=== PATIENT | female | born 1990 | race Caucasian/White ===

== ENCOUNTER 2022-05-01 07:48 | Emergency (ER) | payer OTHER ==
[~2022-05-01] VITALS: Ht 165.1 cm; Wt 59.9 kg
[~2022-05-01 07:48] MED LIST: ABILIFY5 MG; ADVIL200 M1 PO; DIFLUCAN150 MG PO; DOXYCYCLINE HY100 MG PO; FLEXERIL10 MG PO; IBUPROFEN200 M1 PO; LORTAB 5-325 M1 EACH PO; NAPROXEN500 MG PO; NORCO 5-325 TA1 EACH PO; PERCOCET 5-3251 EACH PO; ROBAXIN-750750 MG PO; ZOFRAN8 MG PO
--- OUTSIDE RECORDS SUMMARY | 2022-05-01 07:56 | XMS ---
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 Asuncion VISIT COUNT (12 MO.) 1 [place] De LeonAletha Ross [address] [place] [address] TOTAL 3 NOTE: Visits indicate total known visits. ED/UCC VISIT TRACKING (12 MO.) 05/01/2022 07:50 [facility] TYPE: Emergency COMPLAINT: - HEADACHE, EYE PAIN, NAUSEA, AMS 04/30/2022 17:14 [facility] [place] TYPE: Emergency COMPLAINT: - HEADACHE, SLURRED SPEECH 04/24/2022 09:47 [facility] Aletha AVILES TYPE: Emergency DIAGNOSES: - Procedure and treatment not carried out due to patient leaving prior to being seen by health care provider - pain INPATIENT VISIT TRACKING (12 MO.) No inpatient visits to display in this time frame [email or web address]
== END 2022-05-01 12:15 | disposition home or self-care (01) ==
LOC: ED 07:48
DX: R51.9 Headache, unspecified (principal); F17.200 Nicotine dependence, unspecified, uncomplicated; Z20.822 Contact with and (suspected) exposure to COVID-19
CPT/HCPCS: 36415; 70450; 70551; 80053; 84703; 85025; 87502; 96361; 96374; 96375; 99284-25; C9803; J1200; J1885; J2765; J7030; U0003

== ENCOUNTER 2025-02-17 09:32 | Emergency (ER) | payer OTHER ==
[~2025-02-17] VITALS: Ht 165.1 cm; Wt 62.0 kg
--- OUTSIDE RECORDS SUMMARY | ~2025-02-17 | XMS | Continuity of Care Document ---
Demographics + + + | Address | [address] | | | [place] [address] | + + + | Preferred Language | Unknown | + + + | Marital Status | Unknown | + + + | Samaritan Affiliation | Unknown | + + + | Race | White | + + + | Ethnic Group | Not or | + + + Author + + + | Author | [facility] | + + + | Organization | [facility] | + + + | Address | [address] | | | [place] [address] | + + + | Phone | | + + + Care Team Providers + + + + | Care Data Communications Technician Name | Role | Phone | + + + + Unavailable | Unavailable | + + + + Allergies No information. Encounters No information. Functional Status No information. Immunizations No information. Medications No information. Problems + + + + | date | description | facility | + + + + | 2025-01-30 23:58:42 | Dental Pain | [facility] | + + + + | 2025-01-31 00:23:39 | Periapical abscess without | [facility] | | | sinus | | + + + + Procedures No information. Results/Labs No information. Social History +--------+ + + | date | description | facility | +--------+ + + Vital Signs No information."
--- OUTSIDE RECORDS SUMMARY | 2025-02-17 09:46 | XMS ---
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 No recent Security Events currently on file CRITERIA MET - [facility] - 2 Visits in 30 Days CARE PROVIDERS -, [facility] Dentist: Car Rental Service Attendant [facility] PHONE: [phone] -[facility] Dentist: Car Rental Service Attendant Current Eddie PHONE: [phone] [employer]/Center: [facility] ([facility]) PHONE: [phone] BELINDA PHILLIPS Nurse Practitioner Current PHONE: [phone] ISAIAH HOLLOWAY [facility] Current PHONE: [phone] Pato has no Care Guidelines for this patient. EKeshav VISIT COUNT (12 MO.) 1 [facility] TOTAL 2 NOTE: Visits indicate total known visits. ED/UCC VISIT TRACKING (12 MO.) 02/17/2025 09:[address] [facility] [place] TYPE: Emergency COMPLAINT: - BACK PAIN 01/30/2025 23:58 [facility] TYPE: Emergency COMPLAINT: - Dental Pain DIAGNOSES: - Periapical abscess without sinus - Dental Pain INPATIENT VISIT TRACKING (12 MO.) No inpatient visits to display in this time frame [email or web address]
[2025-02-17] MEDS ORDERED: CYCLOBENZAPRINE HCL 10 MG TAB PO ONE (10:45)
[2025-02-17] MEDS ORDERED: IBUPROFEN 600 MG TAB PO ONE (10:45)
[2025-02-17] MEDS ORDERED: OXYCODONE/APAP 5/325 TAB PO ONE (10:45)
[2025-02-17] MEDS ORDERED: LIDOCAINE HCL 4% 1 EACH PATCH TD ONE (10:45)
[2025-02-17 11:02] VITALS: BP 98/67
[2025-02-17] MEDS ORDERED: LIDOCAINE PATCH REMOVAL 1 EA TD SCH (21:00)
== END 2025-02-17 11:00 | disposition home or self-care (01) ==
LOC: ED 09:32
DX: M54.50 Low back pain, unspecified (principal); F17.200 Nicotine dependence, unspecified, uncomplicated
CPT/HCPCS: 99283; A9270